=== PATIENT | female | born 1965 | race Two or more races ===

== ENCOUNTER → 2020-03-31 | Outpatient (CLI) | payer OTHER ==
--- NOTE | 2020-03-31 13:34 | RAD ---
STUDY: US PELVIS W/TV HISTORY: Follow-up left ovarian cyst. COMPARISON: None available. TECHNIQUE: Pelvic ultrasound was performed with transabdominal and transvaginal probes.. FINDINGS: The uterus is measured at 8.6 x 5.1 x 3.9 cm. No appreciable uterine mass. The endometrial echo is me asured at 0.5 cm however note is made that the endometrium is difficult to delineate. The right ovary measures 2.4 x 1.7 x 1.0 cm with normal blood flow. No complex cyst or mass. The left ovary/adnexa is obscured by bowel gas. No free pelvic fluid. IMPRESSION: 1. The study was performed to follow-up a left ovarian cyst however the left ovary/adnexa is obscure d by bowel gas. Unfortunately it is not able to be determined at this time if there has been any blank ge in size. 2. No discrete abnormality of the uterus. The endometrium is measured at 0.5 cm in thickness though is difficult to delineate and may actually be thinner. 3. Unremarkable right ovary. Electronically signed by: SHANNAN SOL MD (03/31/2020 1:23 PM) [id number]
== END ==
LOC: US 09:04
PROVIDERS: ATTEND Nurse Practitioner Family
DX: N83.292 Other ovarian cyst, left side (principal); R93.89 Abnormal findings on diagnostic imaging of other specified body structures
CPT/HCPCS: 76830; 76856